=== PATIENT | female | born 1985 | race Caucasian/White ===

== ENCOUNTER 2021-02-03 10:04 | Outpatient (REF) | payer BC, SELFPAY ==
[2021-02-04 04:45] LABS: HBS Num1 0.56 mIU/mL (0-7.99); ~HepC Num1 0.06 S/CO (0.00-0.79); ~Hepatitis B Surface Antibody NONREACTIVE (Nonreactive); ~Hepatitis C Antibody Nonreactive (Nonreactive)
[2021-02-04 13:32] LABS: Rubella IgM Antibody <20.00 AU/mL; Rubeola IgG (Measles) >300.00 AU/mL
== END 2021-02-03 10:05 | disposition home or self-care (01) ==
LOC: HO.MANLDS 10:04
PROVIDERS: PCP Internal Medicine; Visit Provider Internal Medicine
DX: Z01.84 Encounter for antibody response examination (principal)
CPT/HCPCS: 36415; 86706; 86735; 86762; 86765; 86787; 86803

== ENCOUNTER 2022-05-08 12:13 | Outpatient (REF) | payer BC, SELFPAY ==
[2022-05-08 14:15] LABS: Appearance Urine Clear; Color Urine Yellow; Glucose Urine UA Negative (Negative); Leukocyte Esterase Urine Negative (Negative); Nitrite Urine Negative (Negative); Specific Gravity - Urine 1.025 (1.005-1.025); Urine Blood Negative (Negative); Urine Ketones Negative (Negative); Urine Protein Negative (Neg-Trace)
[2022-05-08 14:21] LABS: Bacteria Urine None Seen (None Seen); Hyaline Casts Urine 0-2 /LPF (0-2); RBC Urine 0-2 /HPF (0-2); Squamous Epithelial Cell Urine 0-2 /HPF (0-2); WBC Urine 0-5 /HPF (0-5)
== END 2022-05-08 12:14 | disposition home or self-care (01) ==
LOC: HO.MANLDS 12:13
PROVIDERS: Visit Provider Physician Assistant
DX: R30.0 Dysuria (principal)
CPT/HCPCS: 81001; 87086

== ENCOUNTER 2022-06-09 15:36 | Outpatient (REF) | payer BC, SELFPAY ==
[2022-06-09 17:49] LABS: Appearance Urine Clear; Color Urine Yellow; Glucose Urine UA Negative (Negative); Leukocyte Esterase Urine Negative (Negative); Nitrite Urine Negative (Negative); PH 6.5 (5.0-9.0); Specific Gravity - Urine 1.015 (1.005-1.025); Urine Blood Negative (Negative); Urine Ketones Negative (Negative); Urine Protein Negative (Neg-Trace)
[2022-06-09 17:54] LABS: Bacteria Urine 1+ (None Seen); Hyaline Casts Urine 0-2 /LPF (0-2); RBC Urine 0-2 /HPF (0-2); WBC Urine 0-5 /HPF (0-5)
== END 2022-06-09 15:37 | disposition home or self-care (01) ==
LOC: HO.MANLDS 15:36
PROVIDERS: Visit Provider Physician Assistant
DX: R30.0 Dysuria (principal)
CPT/HCPCS: 81001; 87086

== ENCOUNTER 2024-02-08 09:00 | Outpatient (REF) | payer BC, SELFPAY ==
[2024-02-08 09:04] LABS: MANUAL DIFF FLAG NO
[2024-02-08 13:32] LABS: Basophils Percent Auto 0.2 % (0-2); Hemoglobin 13.5 g/dl (12.0-16.0); Imm Gran Abs Auto 0.01 X10*3/uL (0.00-0.03); Imm Gran Pct Auto 0.2 % (0.0-0.4); Lymphocytes Absolute Auto 1.5 X10*3/uL (1.2-4.9); Lymphocytes Percent Auto 21.8 % (20-40); Mean Corpuscular HGB Conc 32.9 g/dl (31.0-35.0); Mean Corpuscular Hemoglobin 30.3 pg (27.0-33.0); Mean Corpuscular Volume 92.1 fL (80.0-98.0); Mean Platelet Volume 9.4 fL (9.4-12.3); Monocytes Absolute Auto 0.3 X10*3/uL (0.1-1.2); Neutrophils Absolute Auto 4.9 x10*3/uL (2.0-8.3); Neutrophils Percent Auto 72.8 % (45-73); Platelet Count 253 X10*3/uL (160-400); Red Blood Count 4.45 X10*6/uL (4.20-5.50); White Blood Count 6.7 X10*3/uL (4.8-10.8)
[2024-02-08 18:10] LABS: Alanine Aminotransferase 6 U/L (0-31); Albumin Level 4.2 g/dL (3.5-5.0); Alkaline Phosphatase 57 U/L (39-117); Anion Gap 12 (12-20); Aspartate Amino Transferase 9 U/L (5-31); Bilirubin Total 0.5 mg/dL (0.0-1.0); Blood Urea Nitrogen 16 mg/dL (9-16); C Reactive Protein < 0.10 mg/dL (< or = 0.50); Calcium 9.8 mg/dL (8.4-10.2); Carbon Dioxide 25 mmol/L (22-29); Chloride 105 mmol/L (96-108); Estimated Glomerular Filt Rate > 60; Glucose Random 107 mg/dL (60-115); Sodium 138 mmol/L (135-145)
[2024-02-09 20:08] LABS: Lyme Abs Screen <0.90 index
== END 2024-02-08 09:01 | disposition home or self-care (01) ==
LOC: HO.MANLDS 09:00
PROVIDERS: Visit Provider Internal Medicine
DX: M25.50 Pain in unspecified joint (principal)
CPT/HCPCS: 36415; 80053; 85025; 86140; 86617; 86618